=== PATIENT | male | born 1955 | race Two or more races ===

== ENCOUNTER 2025-04-15 08:47 | Day surgery (SDC) | payer MEDICARE ==
[2025-04-14 10:03] VITALS: BMI 24.1
[~2025-04-15 08:47] MED LIST: LIDOCAINE 1% (10MG/ML) FOR IV START INTRADERMA PRN
[2025-04-15 09:24] VITALS: RESP 16; TEMP 97.3
[2025-04-15] MEDS: IV FLUID CONTINUATION 1,000 ML IV ONE (09:24)
[2025-04-15] MEDS: LACTATED RINGERS 1,000 ML IV SCH (09:28)
[2025-04-15 09:41] LABS: Glucose,Whole Blood 72 mg/dL (70-110)
[2025-04-15] MEDS ORDERED: PROPOFOL 10 MG/ML 20 ML VIAL IV ONE (10:00)
--- NOTE | 2025-04-15 10:20 | P.PCN ---
Date of Procedure: 04/15/25 Procedure(s) Performed: BRIEF HISTORY: Patient is a 69-year-old pleasant white male scheduled for an elective colonoscopy as a part of screening for by history of colon polyps and family history of colon cancer. His father was diagnosed with colon cancer at age 67. PROCEDURE PERFORMED: Colonoscopy with snare polypectomy. PREOPERATIVE DIAGNOSIS: Screening for history of colon polyps and family history of colon cancer. IV sedation per Anesthesia. PROCEDURE: After informed consent was obtained, the patient, was brought into the endoscopy unit. IV sedation was administered by Anesthesia under continuous monitoring. Digital rectal examination was normal. Initially the Olympus CF-160 flexible video colonoscope was then inserted in the rectum, gradually advanced into the cecum without any difficulty. Careful examination was performed as the scope was gradually being withdrawn. Ileocecal valve and the appendiceal orifice were visualized and appeared normal. Prep was excellent. Mucosa of the cecum, ascending colon, appeared normal. The transverse colon there is a 5 mm polyp removed by cold snare polypectomy. Rest of the transverse colon, descending colon, appeared normal. The sigmoid colon there was a 1 cm polyp removed by cold snare polypectomy. In the rectum there were 4 polyps measuring between 3 mm and 5 mm in size removed by cold snare polypectomy. Rest of the sigmoid colon, and rectum appeared normal. Retroflexion was performed in the rectum and no lesions were seen. The patient tolerated the procedure well. IMPRESSION: 5 mm transverse colon polyp status post cold snare polypectomy 1 cm sigmoid colon polyp status post cold snare polypectomy 3 mm x 3 and 5 mm rectal polyp status post cold snare polypectomy RECOMMENDATIONS: Findings of this examination were discussed with the patient as well as his family.. He was advised to follow with the biopsy of this. If the biopsy reveals adenoma he can have repeat colonoscopy 3 years.
[2025-04-15 10:36] LABS: Glucose,Whole Blood 61 mg/dL (70-110)
[2025-04-15] MEDS: DEXTROSE 50% SYRINGE 50 ML IVP STA (10:42)
[2025-04-15 10:51] LABS: Glucose,Whole Blood 58 mg/dL (70-110)
[2025-04-15 10:56] VITALS: BP 154/84; PULSE 88
[2025-04-15 11:06] LABS: Glucose,Whole Blood 130 mg/dL (70-110)
[2025-04-15 11:33] LABS: Glucose,Whole Blood 169 mg/dL (70-110)
== END 2025-04-15 11:35 | disposition home or self-care (01) ==
LOC: ORWHC2ENDO 08:47
PROVIDERS: ATTEND Internal Medicine Gastroenterology
DX: Z12.11 Encounter for screening for malignant neoplasm of colon (principal); Z86.0100 Personal history of colon polyps, unspecified; Z80.0 Family history of malignant neoplasm of digestive organs; D12.3 Benign neoplasm of transverse colon; D12.5 Benign neoplasm of sigmoid colon; K62.1 Rectal polyp
CPT/HCPCS: 45385; J2704; 88305